=== PATIENT | male | born 1955 | race Caucasian/White ===

== ENCOUNTER 2024-03-22 10:44 | Inpatient (IN) | payer MEDICARE ==
[2024-03-22] VITALS (20 sets, daily range): BP systolic 111–134; BP diastolic 59–77
[~2024-03-22] VITALS: Ht 185.4 cm; Wt 94.3 kg
[2024-03-22] MEDS ORDERED: PLAVIX75 MG PO (11:18)
[2024-03-22] MEDS ORDERED: JARDIANCE25 MG (11:19)
[2024-03-22] MEDS ORDERED: ALLOPURINOL300 MG PO (11:20)
[2024-03-22] MEDS ORDERED: LANTUS100 UNIT SC (11:20)
[2024-03-22] MEDS ORDERED: ELIQUIS5 MG PO (11:20)
[2024-03-22] MEDS ORDERED: CRESTOR40 MG PO (11:21)
[2024-03-22] MEDS ORDERED: GABAPENTIN100 MG PO (11:21)
--- NOTE | 2024-03-22 11:24 | NUR ---
CALLED DR VALENCIA'S OFFICE AND LEFT MESSAGE
[2024-03-22] MEDS ORDERED: PIPERACILLIN Sodium-Tazobactam 4.5 GM in SODIUM CHLORIDE 0.9% 100 ML IV ONE (11:30)
[2024-03-22] MEDS ORDERED: cefTRIAXone SODIUM 2 GM in SODIUM CHLORIDE 0.9% 100 ML IV ONE (11:30)
[2024-03-22 11:48] LABS: BASO% 0.5 % (0-3); EOS% 2.3 % (0-8); HEMATOCRIT 44.3 % (39.0-50.0); HEMOGLOBIN 14.2 g/dl (14.0-18.0); IMMATURE GRANULOCYTES 0.1 % (0.0-5.0); LYMPH% 17.7 % (15-41); MEAN CELL VOLUME 91.5 fL CALC (80.0-100.0); MEAN CORPUSCULAR HGB 29.3 pG CALC (26.0-32.0); MEAN CORPUSCULAR HGB CONC 32.1 g/dL CAL (32.0-36.0); MONO% 8.3 % (2-13); NEUT# 7.05 thou/uL (1.82-7.42); NEUT% 71.1 % (42-76); RED BLOOD COUNT 4.84 mill/uL (4.70-6.10); RED CELL DISTRI WIDTH 13.7 % (11.5-15.5)
[2024-03-22 12:01] LABS: BILIRUBIN, TOTAL 0.7 mg/dL (0.2-1.3); POTASSIUM 4.7 mmol/l (3.5-5.1); TOTAL PROTEIN 7.3 g/dL (6.3-8.2)
[2024-03-22] MEDS ORDERED: ACETAMINOPHEN 325 MG/TAB PO PRN (12:50)
[2024-03-22] MEDS ORDERED: SODIUM CHLORIDE 0.9% 1,000 ML IV PRN (12:50)
[2024-03-22] MEDS ORDERED: MAGNESIUM HYDROXIDE 30 ML UDC PO PRN (12:50)
[2024-03-22] MEDS ORDERED: CEFEPIME HYDROCHLORIDE 2 GM in SODIUM CHLORIDE 0.9% 100 ML IV SCH (14:30)
[2024-03-22] MEDS ORDERED: VANCOMYCIN HCL 1,250 MG in SODIUM CHLORIDE 0.9% 225 ML IV SCH (15:00)
[2024-03-22] MEDS ORDERED: CLOPIDOGREL BISULFATE 75 MG/TAB TAB PO SCH (16:00)
[2024-03-22] MEDS ORDERED: ALLOPURINOL 100 MG/TAB PO SCH (16:00)
--- NOTE | 2024-03-22 16:31 | NUR ---
PT GLUCOSE IS 135 @1630.
--- NOTE | 2024-03-22 16:55 | NUR ---
S: LAZARO PADRON is a 68 M who presents with osteomyelitis. All medications in patient's chart were reviewed. O: VS: BP 121/67 mmhg, P 87 bpm, RR 18 bpm,T 972.F W 98kg, HT 73in, Scr= 1.0 mg/dl,CrCl= 88.3 ml/min A: Blood culture is pending. P: Patient is on cefepime 2gm iv q12h. Vancomycin ordered for pharmacy to dose. Start Vancomycin 1250mg IV Q12H. Vancomycin trough is drawn before the 4th dose on 03/24/24 @0230. Vancomycin goal trough is between 15-20 mcg/ml. Pharmacy will follow and or advise on antibiotics use as needed.
[2024-03-22] MEDS ORDERED: INSULIN LISPRO 100 UNITS/ML ML SC SCH (17:00)
--- NOTE | 2024-03-22 20:10 | NUR ---
PT SITTING UP IN BED. ALERT AND ORIENTED X4. RESPS ARE EVEN AND UNLABORED. NO DSITRESS NOTED. DENIES ANY PAIN. LUNGS ARE CLEAR TO AUCULTATION. ABDOMEN IS SOFT. SKIN IS WARMTH, DRY AND INTACT. SWELLING AND REDNESS NOTED TO RIGHT FIRST AND SECONG TOES AND SWELLING TO FIRST LEFT TOE. DENIES ANY PAIN. WEAK PULSES TO PEDAL PULSES. 20 LEFT A/C FLUSHED WITH 5 CC-NO SIGNS OF ANY ABNORMALITIES. IV SITE IS CLEAN, HEALTHY AND INTACT. CALL LIGHT IS IN REACH AND SAFETY PRECAUTIONS IN PLACE.
[2024-03-22] MEDS ORDERED: GABAPENTIN 100 MG/CAP PO SCH (21:00)
[2024-03-22] MEDS ORDERED: ENOXAPARIN SODIUM 40 MG/0.4 ML SYR SC SCH (21:00)
[2024-03-22] MEDS ORDERED: INSULIN GLARGINE 100 UNITS/ML SC SCH ×2 (21:00)
--- NOTE | 2024-03-22 21:39 | NUR ---
03/22/2024 @1999 pt glucose was 102.
--- NOTE | 2024-03-23 | NUR ---
PT RESTING IN BED WITH EYES CLOSED. RESPS ARE EVEN AND UNLABORED. NO DSITRESS NOTED. IVF NS INSUING VIA LEFT AC AT THIS TIME AT 100 CC. CALL LIGTH IN REACH AND SAFETY PRECAUTIOSN IN PLACE.
[2024-03-23 04:00] VITALS: BP 113/68
--- NOTE | 2024-03-23 04:00 | NUR ---
PATIENT IS RESTING IS BED WITH EYES CLOSED. VANCO STILL INFUSING AT THIS TIME VIA LEFT AC AT THIS TIME. RESPS ARE EVEN AND UNLABORED. CALL LIGHT IN REACH AND SAFETY PRECAUTIONS IN PLACE.
[2024-03-23 04:20] VITALS: BP 113/68
[2024-03-23 07:45] VITALS: BP 106/57
--- NOTE | 2024-03-23 07:46 | NUR ---
REPORT RECIEVED. PT A/OX3. ASSESSMENT COMPLETED. RR UNLABORED ON ROOM AIR. WOUND TO RIGHT FOOT NOTED, DRESSING TO BE APPLIED. TELE MONITORING. PT DENIES OF ANY ADDITIONAL NEEDS. SAFETY PRECAUTIONS IN PLACE WITH CALL LIGHT IN REACH.
--- NOTE | 2024-03-23 07:47 | NUR ---
patient glucose level is 97.
--- NOTE | 2024-03-23 11:10 | NUR ---
pt blood sugar 113 @1040
--- NOTE | 2024-03-23 12:30 | NUR ---
PT RESTING SEMI FOWLERS POSITION. RR UNLABORED. IVF. DRESSING TO RIGHT FOOT CDI. PT DENIES OF ANY NEEDS. SAFETY PRECAUTIONS
[2024-03-23 15:24] VITALS: BP 119/46
--- NOTE | 2024-03-23 15:39 | NUR ---
PT GLUCOSE IS 136 @1520.
--- NOTE | 2024-03-23 16:18 | NUR ---
PT RESTING IN LOW FOWLERS. RR UNLABORED. CARDIAC MONITORING. IVF. PT DENIES OF ANY NEEDS. SAFETY PRECAUTIONS. CALL LIGHT.
[2024-03-23 19:16] VITALS: BP 121/58
--- NOTE | 2024-03-23 19:25 | NUR ---
SHIFT CHANGE REPORT RECEIVED. PT RESTING IN BED WATCHING TV AT THIS TIME. ALERT AND ORIENTED X4. DENIES ANY PAIN. RESPS ARE EVEN AND UNLABORED. NO DISTRESS NOTED. LUNGS ARE CLEAR TO AUCULTATION. ABDOMEN IS SOFT AND NONDISTENDED WITH ACTIVE BOWEL SOUNDS. 20 G LAC INTACT INFUSING INF NS AT 100 CC. DRESSING TO RIGHT FOOT INTACT WITHOUT ANY DRAINAGE. STRONG PEDAL PULSES. NO EDEMA NOTED. ENCOURAGED TO CALL FOR ASSISTANCE. CALL LIGHT IS IN REACH AND SAFETY PRECAUTIONS IN PLACE.
--- NOTE | 2024-03-23 20:10 | NUR ---
blood surgar 108
--- NOTE | 2024-03-24 | NUR ---
PT RESTING IN RIGHT-SIDED POSITION WITH EYES CLOSED. RESPS ARE EVEN AND UNLABORED. IVF NS INFUSING VIA LEFT AC AT 100 [facility]. DRESSING REMAINS INTACT. CALL LIGHT IN REACH AND SAFETY PRECAUTIONS IN PLACE.
[2024-03-24 02:29] LABS: BASO% 0.5 % (0-3); HEMATOCRIT 42.9 % (39.0-50.0); HEMOGLOBIN 13.6 g/dl (14.0-18.0); IMMATURE GRANULOCYTES 0.8 % (0.0-5.0); LYMPH% 19.4 % (15-41); MEAN CELL VOLUME 91.3 fL CALC (80.0-100.0); MEAN CORPUSCULAR HGB 28.9 pG CALC (26.0-32.0); MEAN CORPUSCULAR HGB CONC 31.7 g/dL CAL (32.0-36.0); MONO% 9.5 % (2-13); NEUT# 6.11 thou/uL (1.82-7.42); NEUT% 66.8 % (42-76); RED BLOOD COUNT 4.7 mill/uL (4.70-6.10); RED CELL DISTRI WIDTH 13.5 % (11.5-15.5)
[2024-03-24 02:34] LABS: ALBUMIN 3.7 g/dL (3.2-5.0); BILIRUBIN, TOTAL 0.6 mg/dL (0.2-1.3); MAGNESIUM 2.1 mg/dL (1.6-2.3); POTASSIUM 4.2 mmol/l (3.5-5.1); TOTAL PROTEIN 6.9 g/dL (6.3-8.2)
--- NOTE | 2024-03-24 03:15 | NUR ---
VANCO TROUGH RESULTS BACK AT 11. VANCO HUNG AND INFUSING ORDERED VIA LAC SITE. PATIENT RESTING IN BED AT THIS TIME WITH NO COMPLAINTS. CALL LIGHT IN REACH. WILL CONT TO MONITOR.
--- NOTE | 2024-03-24 04:00 | NUR ---
PT RESTING IN BED WITH EYES CLOSED. BREATHING IS EVEN AND UNLABORED. VANCO INFUSING THROUGH LAC AT THIS TIME. CALL LIGHT IN REACH AND SAFETY PRECAUTIONS IN PLACE.
[2024-03-24 04:14] VITALS: BP 109/67
[2024-03-24 05:00] VITALS: BP 109/67
[2024-03-24 06:38] VITALS: BP 116/52
--- NOTE | 2024-03-24 07:05 | NUR ---
PT LAYING IN BED RESTING WITH EYES CLOSED, PT AROUSES EASILY TO VERBAL STIMULI, PT IS A&O X3, PUPILS PERRL,RESP. EVEN AND UNLABORED, LUNG SOUNDS ARE CLEAR, ABD SOFT AND DISTENDED WITH ACTIVE BOWEL, 20G LAC IV WITH FLUIDS INFUSING AT PRESCRIBED RATE, SAFTEY MEASURES REINFORCED, CALL SANDOVAL WITHIN REACH
--- NOTE | 2024-03-24 07:11 | NUR ---
pt glucose was 89 @0630
--- NOTE | 2024-03-24 11:02 | NUR ---
pt sugar was 132 @1045
--- NOTE | 2024-03-24 12:00 | NUR ---
PT SITTING UP IN THE BED EATING LUNCH, NO S/S OF DISTRESS, PT REMINDED TO CALL FOR ASSISTANCE, CALL SANDOVAL WITHIN REACH
--- NOTE | 2024-03-24 13:09 | NUR ---
S: LAZARO PADRON is a 68 M who presents with osteomyelitis. He has a history of diabetes, hypertension and heart disease. All medications in patient's chart were reviewed. O: VS: BP 116/52, P 66, RR 19. W 94.8, HT 73 inches, Scr= 1, CrCl= 87 ml/min Vancomycin trough 03/24@0230 = 11 A: Vancomycin trough level below goal of 15-20. Increase the dose/frequency of vancomycin is warranted. Blood culture shows no growth after 48 hours of incubation. P: Patient is on vancomycin 1.25g IV Q12hr. Vancomycin ordered for pharmacy to dose. Increase Vancomycin to 1g IV Q8H. Vancomycin trough is drawn before the 4th dose on 03/25/2024 at 1530. Vancomycin goal trough is between 15-20 mcg/ml. Pharmacy will follow and or advise on antibiotics use as needed.
[2024-03-24] MEDS ORDERED: VANCOMYCIN HCL 1 GM in SODIUM CHLORIDE 0.9% 250 ML IV SCH ×2 (14:00→16:00)
[2024-03-24 15:27] VITALS: BP 105/56
--- NOTE | 2024-03-24 16:00 | NUR ---
PT LAYING IN BED TALKING TO SPOUSE WHO IS AT BEDSIDE, PT DENIES ANY NEEDS AT THIS TIME, CALL SANDOVAL WITHIN REACH
--- NOTE | 2024-03-24 16:31 | NUR ---
pt sugar was 106 @1545
[2024-03-24 18:30] VITALS: BP 112/42
[2024-03-24 18:34] VITALS: BP 112/42
--- NOTE | 2024-03-24 19:20 | NUR ---
PATIENT OBSERVED SITTING UP IN BED. ALERT AND ORIENTED. ABLE TO MAKE NEEDS KNOWN. ASSESSMENT COMPLETE. NO DISTRESS NOTED. NO COMPLAINTS OF PAIN TO RIGHT FOOT AT THIS TIME. DRESSING INTACT. PATIENT DENIES NEEDING ANYTHING AT THIS TIME. BED IN LOW POSITION. CALL SANDOVAL IN REACH.
--- NOTE | 2024-03-24 20:25 | NUR ---
NOTIFIED SURGEON TO CLARIFY IF DRESSING NEEDED TO BE CHANGED TONIGHT. PER SURGEON PATIENT DRESSING CAN BE CHANGED TONIGHT IF PATIENT WANTS IT DONE.
--- NOTE | 2024-03-24 20:40 | NUR ---
03/24/2024 @1999 pt glucose was 110.
--- NOTE | 2024-03-24 22:15 | NUR ---
DRESSING CHANGED TO RIGHT FOOT. GREAT TOE AND SECOND TOE APPEAR WITH BROWN/BLACK AREAS IN COLOR WITH SOME PINK AREAS. ON INNER SECOND TOE TOWARDS GREAT TOE, ON THE SIDE, AREA OBSERVED OPEN AND [place]. PATIENT TOLERATED DRESSING CHANGE.
--- NOTE | 2024-03-24 22:35 | NUR ---
REMOVED LEFT AC #22 PER PATIENT REQUEST. CATHETER WAS INTACT.
[2024-03-25] VITALS (8 sets, daily range): BP systolic 108–139; BP diastolic 42–68
--- NOTE | 2024-03-25 00:39 | NUR ---
PATIENT DENIES NEEDING ANYTHING AT THIS TIME. BED IN LOW POSITION. CALL SANDOVAL IN REACH. DRESSING REMAINS INTACT TO RIGHT FOOT.
--- NOTE | 2024-03-25 04:00 | NUR ---
MORNING LABS DRAWN PER ORDERS. DENIES NEEDING ANYTHING AT THIS TIME. BED IN LOW POSITION. CALL SANDOVAL AND BELONGINGS REMAIN IN REACH.
[2024-03-25 05:11] LABS: BASO% 0.8 % (0-3); EOS% 2.9 % (0-8); HEMATOCRIT 39.8 % (39.0-50.0); HEMOGLOBIN 13.3 g/dl (14.0-18.0); IMMATURE GRANULOCYTES 0.1 % (0.0-5.0); LYMPH% 17.5 % (15-41); MEAN CELL VOLUME 90.7 fL CALC (80.0-100.0); MEAN CORPUSCULAR HGB 30.3 pG CALC (26.0-32.0); MEAN CORPUSCULAR HGB CONC 33.4 g/dL CAL (32.0-36.0); MONO% 8.6 % (2-13); NEUT# 6.45 thou/uL (1.82-7.42); NEUT% 70.1 % (42-76); RED BLOOD COUNT 4.39 mill/uL (4.70-6.10); RED CELL DISTRI WIDTH 13.4 % (11.5-15.5)
[2024-03-25 05:43] LABS: ALBUMIN 3.4 g/dL (3.2-5.0); BILIRUBIN, TOTAL 0.6 mg/dL (0.2-1.3); CREATININE 0.9 mg/dL (0.7-1.3); POTASSIUM 4.1 mmol/l (3.5-5.1); TOTAL PROTEIN 6.4 g/dL (6.3-8.2)
--- NOTE | 2024-03-25 07:02 | NUR ---
pt sugar was 111 @0772
--- NOTE | 2024-03-25 07:10 | NUR ---
PT LYING IN BED FLAT WITH EYES OPEN. AXO X3. CLEAR LUNG SOUNDS WITH NO LABORED BREATHING ON ROOM AIR. NORMAL S1, S2 HEART RYTHM. STRONG PEDAL PULSES. R FOOT DIGIT DRESSING IN PLACE. NO TELLE. PT DECLINES ANY NEEDS AT THIS TIME. PT REMINDED OF SAFETY PRECAUTIONS. BED IN LOWEST POSITION AND CALL L8IGHT WITHIN REACH.
--- NOTE | 2024-03-25 08:00 | NUR ---
PT WAS DELIVERED BREAKFAST AT 0730 TO ENSURE HE HAD TIME TO EAT BEFOREW GOING NPO. PATIENT WAS REMINDED AT 0800 NOTHING BY MOUTH FOOD OR WATER. REMOVED PT'S FOOD AND WATER IN PREPARATION TO SURGERY THIS AFTERNOON ON HIS RIGHT FOOT DIGITS. PT DECLINES ANY NEEDS AT THIS TIME. CALL LIGHT WITHIN REACH.
--- NOTE | 2024-03-25 10:43 | NUR ---
pt sugar was 144 @1035
--- NOTE | 2024-03-25 12:02 | NUR ---
PT SITTING UP IN BED WATCHING TV. PT STILL NPO DUE TO SURGERY SCHEDULED THIS AFTERNOON ON RIGHT FOOT DIGIT, STAFF WITHHELD LUNCH. PICC LINE IN PLACE AND HEALTHY. PT BREATHING IS CLEAR AND UNLABORED ON ROOM AIR. PT DECLINES ANY NEEDS AT THIS TIME. BED IN LOWEST POSITION AND CALL SANDOVAL WITHIN REACH.
[2024-03-25] MEDS ORDERED: SODIUM CHLORIDE 1,000 ML BTL IR ONE (13:33)
[2024-03-25] MEDS ORDERED: STERILE WATER FOR IRRIGATION 1,000 ML BTL IR ONE (13:33)
[2024-03-25] MEDS ORDERED: BUPIVACAINE HCL PF 0.5% 30 ML VIAL ONE (13:33)
--- NOTE | 2024-03-25 14:48 | NUR ---
PT TRANSPORTED TO OR BY TWO OR NURSES VIA STRETCHER. PT ENCOURAGED TO VOID PRIOR TO TRANSPORT AND CHANGED INTO GOWN AND CAP.
[2024-03-25] MEDS ORDERED: FAMOTIDINE 10MG/ML 2ML SDV IV ONE (15:03)
[2024-03-25] MEDS ORDERED: SODIUM CHLORIDE 0.9% 1,000 ML IV ONE (15:03)
--- NOTE | 2024-03-25 15:42 | NUR ---
S: LAZARO PADRON is a 68 M who presents with osteomyelitis. O: VS: BP 120/72, P 85, RR 16, T 97.3 W 94.8 kg, HT 73 in, Scr=0.9, CrCl= 88 ml/min Vancomycin trough 03/25/24@1506 = 17 A: Blood culture is pending. Vancomycin trough level within goal range of 15-20. No change in dose is warranted. P: Patient is on vancomycin 1 g IV q8h. Vancomycin ordered for pharmacy to dose. Continue Vancomycin 1g IV Q8H. Vancomycin trough is drawn before the dose on 03/26/24@1530. Vancomycin goal trough is between 15-20 mcg/ml. Pharmacy will follow and or advise on antibiotics use as needed.
[2024-03-25] MEDS ORDERED: PROPOFOL 200 MG/20 ML VIAL IV ONE (16:28)
[2024-03-25] MEDS ORDERED: PHENYLEPHRINE HCL 10 MG/ML VIAL IV ONE (16:28)
[2024-03-25] MEDS ORDERED: LIDOCAINE HCL 2% 2ML SDV IV ONE (16:28)
--- NOTE | 2024-03-25 17:30 | NUR ---
PT RETURNED TO THE ROOM VIA STETCHER WITH OR STAFF. PT SELF TRANSFERED FROM STRETCHER TO BED IN ROOM WITH NO ASSIST. ELEVATED RIGHT FOOT WITH TWO PILLOWS PER DOCTORS REQUEST. RIGHT GREAT TOE REMOVED IN OR AND DRESSING IS DRY AND IN PLACE. PT TAKEN OFF NPO AND EATING DINNER WITH THREE VISITORS AT THE BEDSIDE. BED IN THE LOWEST POSITION AND CALL SANDOVAL WITHIN REACH.
--- NOTE | 2024-03-25 19:00 | NUR ---
PATIENT OBSERVED RESTING IN BED. ALERT AND ABLE TO MAKE NEEDS KNOWN. ASSESSMENT COMPLETE. NO DISTRESS NOTED. NO COMPLAINTS OF PAIN. SURGICAL DRESSING TO RIGHT FOOT CDI. PATIENT ABLE TO WHIGGLE TOES. SCD ON TO LEFT LEG. RIGHT LEG ELEVATED. POORNIMA PICC PATENT. PATIENT DENIES NEEDING ANYTHING AT THIS TIME. BED IN LOW POSITION. CALL SANDOVAL IN REACH.
--- NOTE | 2024-03-26 00:19 | NUR ---
PATIENT SITS ON SIDE OF BED TO USE URINAL. NO COMPLAINTS WITH VOIDING. NO COMPLAINTS OF PAIN. DENIES NEEDING ANYTHING AT THIS TIME. CALL SANDOVAL IN REACH.
[2024-03-26 04:28] VITALS: BP 110/63
--- NOTE | 2024-03-26 04:29 | NUR ---
PATIENT REMAINS RESTING IN BED. NO DISTRESS NOTED. NO COMPLAINTS OF PAIN. DRESSING REMAINS INTACT TO RIGHT FOOT. CIRCULATION REMAINS WNL. PATIENT REMAINS ABLE TO WIGGLE TOES. DENIES NEEDING ANYTHING AT THIS TIME. CALL SANDOVAL IN REACH.
[2024-03-26 05:34] LABS: BASO% 0.5 % (0-3); EOS% 2.9 % (0-8); HEMOGLOBIN 13.3 g/dl (14.0-18.0); IMMATURE GRANULOCYTES 0.2 % (0.0-5.0); LYMPH% 15.5 % (15-41); MEAN CELL VOLUME 91.1 fL CALC (80.0-100.0); MEAN CORPUSCULAR HGB 30.3 pG CALC (26.0-32.0); MEAN CORPUSCULAR HGB CONC 33.3 g/dL CAL (32.0-36.0); MONO% 7.7 % (2-13); NEUT# 7.12 thou/uL (1.82-7.42); NEUT% 73.2 % (42-76); RED BLOOD COUNT 4.39 mill/uL (4.70-6.10); RED CELL DISTRI WIDTH 13.4 % (11.5-15.5)
[2024-03-26 05:52] LABS: ALBUMIN 3.3 g/dL (3.2-5.0); BILIRUBIN, TOTAL 0.5 mg/dL (0.2-1.3); CREATININE 0.9 mg/dL (0.7-1.3); MAGNESIUM 2.1 mg/dL (1.6-2.3); POTASSIUM 4.2 mmol/l (3.5-5.1); TOTAL PROTEIN 6.2 g/dL (6.3-8.2)
--- NOTE | 2024-03-26 07:07 | NUR ---
PATIENT A&OX3, LYING SUPINE IN BED. BREATHING UNLABORED ON ROOM AIR. POORNIMA PICC SL;SITE CLEAN AND INTACT. ASSESSMENT COMPLETED. PT DENIES ANY PAIN OR N/D/V/ AT THIS TIME. PERSONAL ITEMS WELL CALL LIGHT WITHIN REACH;PT VERBALIZED UNDERSTANDING OF USE. BED IN LOWEST POSITON. MEDICATION REVIEWED. POC ONGOING. NO NEEDS AT THIS TIME.
[2024-03-26 07:48] VITALS: BP 103/61
[2024-03-26 10:26] VITALS: BP 99/69
--- NOTE | 2024-03-26 12:29 | NUR ---
PATIENT SITTING UP IN BED AWAKE. BREATHING UNLABORED ON ROOM AIR. POORNIMA PICC SL;SITE CLEAN AND INTACT. PT DENIES ANY PAIN OR N/D/V AT THIS TIME. DENIES ANY NEEDS. RIGHT FOOT SURGICAL DRESSING C/D/I. SCD ON LEFT LEG INTACT. BED IN LOWEST POSITON. PT STATES HE IS ABOUT TO TAKE A NAP. NO OTHER NEEDS AT THIS TIME. BED IN LOWEST POSITON. POC ONGOING.
[2024-03-26] MEDS ORDERED: APIXABAN BASE 5 MG TAB PO SCH (12:30)
--- NOTE | 2024-03-26 16:16 | NUR ---
S: LAZARO PADRON is a 68 M who presents with OSTEOMYELITIS. All medications in patient's chart were reviewed. O: VS: BP 99/69, P 62, RR 20,T 97.3 F W 94kg, HT 73 IN, Scr= 0.9,CrCl= 96ml/min TROUGH=17 A: wound and blood culture are pending P: Patient is on vancomycin 1gm iv q8h and cefepime 2gm iv q12h Vancomycin ordered for pharmacy to dose. continue Vancomycin 1gm IV Q8H. Vancomycin trough is drawn before the 4th dose on 03/27/24 @1530. Vancomycin goal trough is between 15-20 mcg/ml. Pharmacy will follow and or advise on antibiotics use as needed.
--- NOTE | 2024-03-26 16:30 | NUR ---
PATIENT LYING IN BED RESTING. BREATHING UNLABORED ON ROOM AIR. POORNIMA PICC INFUSING FLUIDS PER EMAR;SITE CLEAN AND INTACT. PT STATES HE IS STARTING TO FEEL SOME TINGLING AND THROBBING IN HIS RIGHT FOOT. RIGHT FOOT DRESSING C/D/I. DENIES ANY N/D/V AT THIS TIME. PERSONAL ITEMS WELL CALL LIGHT WITHIN REACH. BED IN LOWEST POSITION. NO OTHER NEEDS AT THIS TIME. POC ONGOING.
[2024-03-26 18:36] VITALS: BP 118/55
[2024-03-26] MEDS ORDERED: HYDROcodone 5 MG/Acetaminophen 325 MG/COMBO PO PRN ×2 (19:40→19:55)
--- NOTE | 2024-03-26 20:00 | NUR ---
RECEIVED RERPORT FROM NURSE CARDOZA, PATIENT ALERT ORIENTED POST OP DAY 1 DRESSING ON RT FOOT CDI, PATIENT FOOT OFFLOADED 2 PILLOW ORDERED, PICC LINE PATENT FLUSHES WELL, C/O PAIN PS 10/10 MEDICATED WILL REEVAULATE.
[2024-03-26] MEDS ORDERED: oxyCODONE 10MG/APAP 325 MG 1 COMBO TAB PO PRN (21:20)
[2024-03-26 22:41] VITALS: BP 122/59
--- NOTE | 2024-03-26 22:52 | NUR ---
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
--- NOTE | 2024-03-26 23:00 | NUR ---
CALLED DR JANE, NOTIFIED OF PATIENT STILL HAVING PAIN RT FOOR PS 10/10 AFTER PERCOCET WITH NEW ORDERS MADE, SENT TO PHARMACY.
[2024-03-26] MEDS ORDERED: HYDROmorphone HCL 2 MG/AMP IV PRN (23:15)
--- NOTE | 2024-03-27 03:49 | NUR ---
PATIENT RESTING IN BED, CALLED REUQESTING PAIN MEDS PS 10/03 RT FOOT MEDICATED, RT FOOT STILL ELEVATED WITH 2 PILLOW, CALL LIGHT WITHIN REACHED.
[2024-03-27 04:18] VITALS: BP 106/47
[2024-03-27 05:43] VITALS: BP 100/51
[2024-03-27 05:44] VITALS: BP 100/51
[2024-03-27 05:56] LABS: BASO% 0.4 % (0-3); HEMATOCRIT 38.9 % (39.0-50.0); HEMOGLOBIN 12.8 g/dl (14.0-18.0); IMMATURE GRANULOCYTES 0.2 % (0.0-5.0); LYMPH% 14.6 % (15-41); MEAN CORPUSCULAR HGB 29.6 pG CALC (26.0-32.0); MEAN CORPUSCULAR HGB CONC 32.9 g/dL CAL (32.0-36.0); MONO% 10.8 % (2-13); NEUT# 7.01 thou/uL (1.82-7.42); RED BLOOD COUNT 4.32 mill/uL (4.70-6.10); RED CELL DISTRI WIDTH 13.4 % (11.5-15.5)
[2024-03-27 06:00] LABS: ALBUMIN 3.4 g/dL (3.2-5.0); CREATININE 0.8 mg/dL (0.7-1.3); MAGNESIUM 2.1 mg/dL (1.6-2.3); POTASSIUM 4.2 mmol/l (3.5-5.1); TOTAL PROTEIN 6.3 g/dL (6.3-8.2)
[2024-03-27 06:12] LABS: BILIRUBIN, TOTAL 0.8 mg/dL (0.2-1.3)
[2024-03-27 07:30] VITALS: BP 98/53
--- NOTE | 2024-03-27 07:33 | NUR ---
PATIENT LYING AWAKE IN BED. BREATHING UNLABORED ON ROOM AIR. POORNIMA PICC SL;SITE CLEAN AND INTACT. RIGHT FOOT DRESSING C/D/I; ENCOURAGED PT TO ELEVATE ON PILLOW. PT STATES TO TO HAVE LITTLE PAIN RATED AT A 4. PT STATES THAT DILAUDID MANAGES HIS PAIN BETTER THAN THE PERCOCET;INFORMED PT IT WILL BE MENTIONED TO THE DOCTOR. PT DENIES ANY N/D/V AT THIS TIME. BED IN LOWEST POSITON. PERSONAL ITMES WELL CALL LIGHT WITHIN REACH. NO OTHER NEEDS AT THIS TIME. POC ONGOING.
--- NOTE | 2024-03-27 12:34 | NUR ---
PATIENT LYING IN BED AWAKE. BREATHING UNLABORED ON ROOM AIR. POORNIMA PICC SL;SITE CLEAN AND INTACT. PT CURRENTLY SPEAKING WITH AT THE MOMENT DUE TO PT REQUEST. AT BEDSIDE. URINAL WELL PERSONAL ITEMS WITHIN REACH. BED IN LOWEST POSION. CALL LIGHT NEAR. PT REQUESTED FOR MORE PAIN MEDICATION;MEDICATION ADMINISTERED PER EMAR. NO OTHER NEEDS AT THIS TIME. RIGHT FOOT DRESSING C/D/I. POC ONGOING.
[2024-03-27] MEDS ORDERED: CEFEPIME HYDROCHLORIDE 2 GM in SODIUM CHLORIDE 0.9% 100 ML IV SCH (14:00)
[2024-03-27 16:00] VITALS: BP 106/58
--- NOTE | 2024-03-27 16:16 | NUR ---
PATIENT LYING IN BED WITH EYES CLOSED RESTING. BREATHING UNLABORED ON ROOM AIR. POORNIMA PICC INFUSING FLUIDS PER EMAR;SITE CLEAN AND INTACT. PT STATES TO NOW START TO FEEL SOME TINGLING;MEDICATION REVIEWED AND ADMINISTERED PER EMAR. DENIES ANY N/D/V AT THIS TIME. RIGHT FOOT DRESSING C/D/I;ENCOURAGED PT TO ELEVATE ON PILLOWS. BED IN LOWEST POSITION. PERSONAL ITEMS WELL CALL LIGHT WITHIN REACH. POC ONGOING. NO OTHER NEEDS AT THIS TIME.
[2024-03-27 18:45] VITALS: BP 102/66
--- NOTE | 2024-03-27 19:50 | NUR ---
PATIENT SITTING UP IN BED. AT BEDSIDE. ASSESSMENT COMPLETED. PATIENT ALERT AND ORIENTED X 4. C/O RT FOOT PAIN OF A 6, MEDICATED ACCORDING TO EMAR. LUNGS CLEAR TO ASCULTATION. BREATHING EVEN AND UNLABORED ON ROOM AIR. DRESSING TO R FOOT CLEAN, DRY AND INTACT. NO ADDITIONAL CONCERNS AT THIS TIME. SAFETY MEASURES IN PLACE INCLUDING BED IN LOW POSITION AND CALL LIGHT RESTING IN R HAND. NO APPARENT DISTRESS NOTED. WILL CONTINUE WITH PLAN OF CARE.
--- NOTE | 2024-03-27 20:42 | NUR ---
PATIENT SITTING UP ON THE SIDE OF THE BED. ASSESSMENT COMPLETED. CIWA COMPLETED (SEE INTERVENTIONS). PATIENT ALERT AND ORIENTED X 4. C/O "BACK OF LUNG" PAIN OF A 9, MEDICATED ACCORDING TO EMAR. LUNG WHEEZES NOTED TO ASCULTATION. BREATHING EVEN AND UNLABORED, SOB NOTED WITH EXERTION ON ROOM AIR. STRONG PERIPHERAL PULSES. 22 RFA FLUSHSES/DRAWS WELL. SAFETY MEASURES IN PLACE INCLUDING BED IN LOW POSITION AND CALL LIGHT RESTING NEXT TO R LEG. NO APPARENT DISTRESS NOTED. WILL CONTINUE WITH PLAN OF CARE.
--- NOTE | 2024-03-27 23:48 | NUR ---
PATIENT LYING IN BED RESTING. C/O PAIN IN R FOOT OF AN 8, MEDICATED ACCORDING TO EMAR. DENIES ADDITIONAL CONCERNS AT THIS TIME. WILL CONTINUE WITH PLAN OF CARE.
--- NOTE | 2024-03-28 04:05 | NUR ---
PATIENT LYING IN BED. C/O R FOOT PAIN, REQUESTING PERCOCET. ADVISED PATIENT MEDICATION IS NOT DUE AT THIS TIME. PATIENT STATED "THAT'S OKAY, JUST TRYING TO STAY AHEAD OF THE PAIN". OFFERED ADDITIONAL PAIN RELIEF MEASURES INCLUDING REPOSITIONING, PATIENT DECLINED. NO ADDITIONAL CONCERNS AT THIS TIME. WILL CONTINUE WITH PLAN OF CARE.
[2024-03-28 04:13] VITALS: BP 116/59
[2024-03-28 06:05] LABS: BASO% 0.6 % (0-3); EOS% 3.9 % (0-8); HEMATOCRIT 41.7 % (39.0-50.0); HEMOGLOBIN 13.4 g/dl (14.0-18.0); IMMATURE GRANULOCYTES 0.1 % (0.0-5.0); LYMPH% 15.3 % (15-41); MEAN CELL VOLUME 91.6 fL CALC (80.0-100.0); MEAN CORPUSCULAR HGB 29.5 pG CALC (26.0-32.0); MEAN CORPUSCULAR HGB CONC 32.1 g/dL CAL (32.0-36.0); MONO% 9.2 % (2-13); NEUT# 5.99 thou/uL (1.82-7.42); NEUT% 70.9 % (42-76); RED BLOOD COUNT 4.55 mill/uL (4.70-6.10); RED CELL DISTRI WIDTH 13.5 % (11.5-15.5)
[2024-03-28 06:16] LABS: ALBUMIN 3.7 g/dL (3.2-5.0); BILIRUBIN, TOTAL 0.7 mg/dL (0.2-1.3); CREATININE 1.1 mg/dL (0.7-1.3); MAGNESIUM 2.1 mg/dL (1.6-2.3); TOTAL PROTEIN 6.7 g/dL (6.3-8.2)
[2024-03-28 07:03] VITALS: BP 113/65
--- NOTE | 2024-03-28 07:06 | NUR ---
PATIENT IN BED WITH EYES CLOSED RESTING. BREATHING UNLABORED ON ROOM AIR. POORNIMA PICC SL;SITE CLEAN AND INTACT. RIGHT FOOT DRESSING C/D/I. NO SIGNS OF DISTRESS OR PAIN NOTED. URINAL NEAR. PERSONAL ITEMS WELL CALL LIGHT WITHIN REACH. BED IN LOWEST POSITION. NO NEEDS AT THIS TIME. POC ONGOING.
--- NOTE | 2024-03-28 10:50 | NUR ---
S: LAZARO PADRON is a 68 M who presents with osteomyelitis. O: VS: BP 113/65, P 82, RR 20,T 98.2 W 94.34 kg, HT 73 in, Scr= 1.1,CrCl= 79 ml/min A: Blood culture is pending. Wound culture shows no growth at 48 hours. P: Patient is on Cefepime 2gm IV q8h. Vancomycin ordered for pharmacy to dose. Vancomycin trough on 03/27/24 1530 resulted at 17 mcg/ml. Continue current dose of Vancomycin 1gm IV Q8H. Vancomycin trough is drawn on 03/29/24 0730. Vancomycin goal trough is between <15-20 mcg/ml>. Pharmacy will follow and or advise on antibiotics use as needed.
--- NOTE | 2024-03-28 12:23 | NUR ---
PATIENT SITTING UP IN BED EATING LUNCH. BREATHING UNLABORED ON ROOM AIR. POORNIMA PICC SL;SITE CLEAN AND INTACT. PT STATES TO HAVE SOME PAIN;INFORMED PT PAIN MEDS WILL BE ADMINISTERED PER EMAR;PT VERBALIZED UNDERSTANDING. RIGHT FOOT DRESSING C/D/I;ENCOURAGED ELEVATION. DENIES ANY N/D/V AT THIS TIME. BED IN LOWEST POSITION. URINAL AND PERSONAL ITEMS WELL CALL LIGHT WITHIN REACH. CALL LIGHT NEAR. POC ONGOING. NO NEEDS AT THIS TIME.
[2024-03-28 15:01] VITALS: BP 114/58
--- NOTE | 2024-03-28 16:40 | NUR ---
PATIENT SITTING UP IN BED WITH AT BEDSIDE. BREATHING UNLABORED ON ROOM AIR. PT STATES HE JUST FINISHED CLEANING HISSELF UP WITH THE HELP OF . STATES TO HAVE SOME PAIN RATED AT A 4;MEDICATION ADMINISTERED PER EMAR. DENIES ANY N/D/V AT THIS TIME. PERSONAL ITEMS WELL CALL LIGHT WITHIN REACH. BED IN LOWEST POSITION. URINAL NEAR. NO OTHER NEEDS AT THIS TIME. POC ONGOING.
[2024-03-28 19:21] VITALS: BP 100/53
--- NOTE | 2024-03-28 19:44 | NUR ---
PATIENT SITTING UP IN BED. FAMILY AT BEDSIDE. PATIENT ALERT AND ORIENTED X 4. C/O R FOOT PAIN OF A 4. REPOSITIONING EFFECTIVE. LUNGS CLEAR TO ASCULTATION. BREATHING EVEN AND UNLABORED ON ROOM AIR. DENIES ADDITIONAL CONCERNS AT THIS TIME. NO APPARENT DISTRESS NOTED. WILL CONTINUE WITH PLAN OF CARE. LB 03/27.
--- NOTE | 2024-03-29 | NUR ---
PATIENT APPEARS TO BE RESTING WITH EYES CLOSED. RISE AND FALL OF CHEST NOTED. NO APPARENT DISTRESS. WILL CONTINUE WITH PLAN OF CARE.
--- NOTE | 2024-03-29 03:41 | NUR ---
PATIENT LYING IN BED. C/O R FOOT PAIN OF AN 8, PATIENT EXPECTATION WAS TO RECEIVE IV DILAUDID. PATIENT EDUCATED ON PAIN MEDICATION ORDERS, DILAUDID FOR BREAKTHROUGH. PATIENT AGREEABLE TO LORTAB. WILL REASSESS PAIN LEVEL WHEN DUE. LAST DOSE LORTAB: 03/28 1651, DILAUDID 03/28 2123. NO ADDITIONAL CONCERNS AT THIS TIME. WILL CONTINUE WITH PLAN OF CARE.
[2024-03-29 04:03] VITALS: BP 113/31
[2024-03-29 07:00] VITALS: BP 96/35
--- NOTE | 2024-03-29 07:40 | NUR ---
PT IS AWAKE LAYING IN BED. CALL LIGHT IN REACH.
--- NOTE | 2024-03-29 12:00 | NUR ---
PT IS LAYING IN BED AWAKE. CALL LIGHT IN REACH. AT THE BEDSIDE.
[2024-03-29 16:00] VITALS: BP 92/40
--- NOTE | 2024-03-29 16:00 | NUR ---
PT IS LAYING IN BED, AT BEDSIDE. CALL LIGHT IN REACH.
[2024-03-29 18:30] VITALS: BP 98/52
[2024-03-29 18:49] VITALS: BP 98/52
--- NOTE | 2024-03-29 20:25 | NUR ---
PT RESTING IN BED NO DISTRESS NOTED. PT REPORTED RIGHT FOOT PAIN 7/10 IV PAIN MEDICATION GIVEN. RIGHT FOOT DRESSING CLEAN AND INTACT. POORNIMA PICC LINE FLUSHED WORKING PROPERLY SL. CALL LIGHT WITHIN REACH. PLAN OF CARE ONGOING.
--- NOTE | 2024-03-30 00:04 | NUR ---
PT SLEEPING NO DISTRESS NOTED ON EXAM. CALL LIGHT WITHIN REACH. PLAN OF CARE ONGOING.
[2024-03-30 04:00] VITALS: BP 103/55
--- NOTE | 2024-03-30 04:15 | NUR ---
PT SLEEPING NO DISTRESS NOTED ON EXAM. CALL LIGHT WITHIN REACH. PLAN OF CARE ONGOING.
[2024-03-30 06:57] VITALS: BP 116/58
[2024-03-30 07:10] VITALS: BP 116/58
--- NOTE | 2024-03-30 07:15 | NUR ---
PT LAYING IN BED RESTING WITH EYES CLOSED, AROUSES EASILY TO VERBAL STIMULI, PT IS A&O X3, PUPILS ARE PERRL, RESP. EVEN AND UNLABORED, LUNG SOUNDS ARE CLEAR, ABD DISTENDED AND SOFT WITH ACTIVE BOWEL SOUNDS, POORNIMA SINGLE LUMEN PICC IN PLACE SL, STRONG RADIAL PULSES, STRONG PEDAL PULSE ON L FOOT, WEAK PEDAL PULSE ON R FOOT, DRESSING IS CD&I ON R FOOT, SAFETY MEASURES REINFORCED, CALL SANDOVAL WITHIN REACH
[2024-03-30] MEDS ORDERED: CEFTRIAXONE2 GM IV (07:42)
[2024-03-30] MEDS ORDERED: DAPTOMYCIN500 MG IV (07:42)
[2024-03-30] MEDS ORDERED: cefTRIAXone SODIUM 2 GM in SODIUM CHLORIDE 0.9% 100 ML IV SCH (11:00)
[2024-03-30] MEDS ORDERED: HYDROCO/APAP1 TA9 PO ×2 (11:58→13:49)
--- NOTE | 2024-03-30 12:00 | NUR ---
PT SITTING UP IN THE BED EATING LUNCH, PT DENIES ANY NEEDS AT THIS TIME, CALL SANDOVAL WITHIN REACH
--- NOTE | 2024-03-30 15:00 | NUR ---
Discharge instructions given. Patient verbalizes understanding of same. Discharged in stable condition via Wheelchair to Home with spouse. All belongings sent with pt.
== END 2024-03-30 15:00 | disposition home health service (06) | DRG 617 ==
LOC: ED 10:44 → MS2 12:36
PROVIDERS: Family Medicine; Internal Medicine; Nurse Practitioner Family; ADMIT Internal Medicine; ATTEND Internal Medicine
PROC: 02HV33Z Insertion of Infusion Device into Superior Vena Cava, Percutaneous Approach (ICD-10-PCS; 2024-03-24)
PROC: B518ZZA Fluoroscopy of Superior Vena Cava, Guidance (ICD-10-PCS; 2024-03-24)
PROC: 0Y6P0Z0 Detachment at Right 1st Toe, Complete, Open Approach (ICD-10-PCS; principal; 2024-03-25)
PROC: 0QBN0ZZ Excision of Right Metatarsal, Open Approach (ICD-10-PCS; 2024-03-25)
PROC: 0HXMXZZ Transfer Right Foot Skin, External Approach (ICD-10-PCS; 2024-03-25)
DX: E11.69 Type 2 diabetes mellitus with other specified complication (principal); L97.518 Non-pressure chronic ulcer of other part of right foot with other specified severity; M86.8X7 Other osteomyelitis, ankle and foot; L03.031 Cellulitis of right toe; E11.621 Type 2 diabetes mellitus with foot ulcer; E11.42 Type 2 diabetes mellitus with diabetic polyneuropathy; E11.51 Type 2 diabetes mellitus with diabetic peripheral angiopathy without gangrene; I10 Essential (primary) hypertension; I48.91 Unspecified atrial fibrillation; I25.10 Atherosclerotic heart disease of native coronary artery without angina pectoris; Z98.62 Peripheral vascular angioplasty status; Z95.5 Presence of coronary angioplasty implant and graft; Z79.84 Long term (current) use of oral hypoglycemic drugs; Z79.01 Long term (current) use of anticoagulants; Z79.02 Long term (current) use of antithrombotics/antiplatelets; Z79.4 Long term (current) use of insulin; Z95.1 Presence of aortocoronary bypass graft
CPT/HCPCS: J0692; J0696; J0878; J1171; J1650; J1815; J2543; J3370

== ENCOUNTER 2024-05-19 15:07 | Inpatient (IN) | payer MEDICARE ==
[~2024-05-19] VITALS: Ht 185.4 cm; Wt 96.0 kg
[2024-05-19 14:38] VITALS: BP 104/54
[~2024-05-19 15:07] MED LIST: ALLOPURINOL300 MG PO; CEFTRIAXONE2 GM IV; CRESTOR40 MG PO; DAPTOMYCIN500 MG IV; ELIQUIS5 MG PO; GABAPENTIN100 MG PO; HYDROCO/APAP1 TA9 PO; JARDIANCE25 MG; LANTUS100 UNIT SC; PLAVIX75 MG PO
[2024-05-19] MEDS ORDERED: ENOXAPARIN SODIUM 100 MG/ML SYR SC SCH (15:50)
[2024-05-19] MEDS ORDERED: DEXTROSE 250 ML IV PRN (15:50)
[2024-05-19 16:08] LABS: HEMOGLOBIN 13.9 g/dl (14.0-18.0); MEAN CELL VOLUME 89.8 fL CALC (80.0-100.0); MEAN CORPUSCULAR HGB CONC 32.3 g/dL CAL (32.0-36.0); RED BLOOD COUNT 4.79 mill/uL (4.70-6.10); RED CELL DISTRI WIDTH 14.4 % (11.5-15.5)
[2024-05-19] MEDS ORDERED: Polyethylene Glycol 3350 17 GM/PKT PO PRN (16:20)
[2024-05-19] MEDS ORDERED: ALUM & MAG HYDROX-SIMETHICONE 30 ML PO PRN (16:20)
[2024-05-19] MEDS ORDERED: SODIUM CHLORIDE 0.9% 10 ML SYR IV PRN (16:20)
[2024-05-19] MEDS ORDERED: LORazepam 0.5 MG/TAB PO PRN (16:20)
[2024-05-19] MEDS ORDERED: ACETAMINOPHEN 325 MG/TAB PO PRN (16:20)
[2024-05-19 16:24] LABS: POTASSIUM 4.1 mmol/l (3.5-5.1)
[2024-05-19] MEDS ORDERED: HYDROcodone 5 MG/Acetaminophen 325 MG/COMBO PO PRN (16:35)
[2024-05-19] MEDS ORDERED: CEFEPIME HYDROCHLORIDE 2 GM in SODIUM CHLORIDE 0.9% 100 ML IV SCH (17:00)
[2024-05-19] MEDS ORDERED: INSULIN LISPRO 100 UNITS/ML ML SC SCH (17:00)
[2024-05-19 17:51] VITALS: BP 114/62
[2024-05-19 18:30] VITALS: BP 114/62
[2024-05-19] MEDS ORDERED: VANCOMYCIN HCL 1 GM in SODIUM CHLORIDE 0.9% 250 ML IV SCH (20:00)
[2024-05-19] MEDS ORDERED: GABAPENTIN 100 MG/CAP PO SCH (21:00)
[2024-05-19] MEDS ORDERED: SODIUM CHLORIDE 0.9% 1,000 ML IV PRN (23:00)
[2024-05-19 23:26] VITALS: BP 142/79
[2024-05-20] VITALS: BP 142/79
[2024-05-20 03:17] VITALS: BP 124/68
[2024-05-20 04:23] LABS: ALBUMIN 3.8 g/dL (3.2-5.0); BILIRUBIN, TOTAL 0.6 mg/dL (0.2-1.3); CREATININE 0.9 mg/dL (0.7-1.3); POTASSIUM 4.1 mmol/l (3.5-5.1); TOTAL PROTEIN 6.6 g/dL (6.3-8.2)
[2024-05-20] MEDS ORDERED: BUPIVACAINE HCL PF 0.5% 30 ML VIAL ONE (06:53)
[2024-05-20] MEDS ORDERED: KETOROLAC TROMETHAMINE 30 MG/ML SDV ONE (08:20)
[2024-05-20] MEDS ORDERED: ACETAMINOPHEN 100 ML IV ONE (08:20)
[2024-05-20] MEDS ORDERED: ALLOPURINOL 100 MG/TAB PO SCH (09:00)
[2024-05-20] MEDS ORDERED: STERILE WATER FOR IRRIGATION 500 ML BTL IR ONE (09:02)
[2024-05-20] MEDS ORDERED: LIDOCAINE HCL 2% (20 MG/ML) 5ML SDV IV ONE (13:18)
[2024-05-20] MEDS ORDERED: SODIUM CHLORIDE 0.9% 1,000 ML BAG IV ONE (13:18)
[2024-05-20] MEDS ORDERED: PHENYLEPHRINE HCL 10 MG/ML VIAL IV ONE (13:18)
[2024-05-20] MEDS ORDERED: PROPOFOL 200 MG/20 ML VIAL IV ONE (13:18)
[2024-05-20 15:03] VITALS: BP 114/70
[2024-05-20 17:58] VITALS: BP 114/70
[2024-05-20 18:47] VITALS: BP 137/71
[2024-05-20] MEDS ORDERED: INSULIN GLARGINE 100 UNITS/ML SC SCH (21:00)
[2024-05-20] MEDS ORDERED: HYDROmorphone HCL 2 MG/AMP IV PRN (22:40)
[2024-05-21] VITALS (10 sets, daily range): BP systolic 110–143; BP diastolic 67–80
[2024-05-21 05:43] LABS: BASO% 0.5 % (0-3); EOS% 5.6 % (0-8); HEMATOCRIT 37.8 % (39.0-50.0); HEMOGLOBIN 12.1 g/dl (14.0-18.0); IMMATURE GRANULOCYTES 0.1 % (0.0-5.0); LYMPH% 11.1 % (15-41); MEAN CELL VOLUME 92.6 fL CALC (80.0-100.0); MEAN CORPUSCULAR HGB 29.7 pG CALC (26.0-32.0); MONO% 9.2 % (2-13); NEUT# 5.34 thou/uL (1.82-7.42); NEUT% 73.5 % (42-76); RED BLOOD COUNT 4.08 mill/uL (4.70-6.10); RED CELL DISTRI WIDTH 14.6 % (11.5-15.5)
[2024-05-21 05:55] LABS: ALBUMIN 3.2 g/dL (3.2-5.0); BILIRUBIN, TOTAL 0.6 mg/dL (0.2-1.3); POTASSIUM 4.1 mmol/l (3.5-5.1); TOTAL PROTEIN 6.1 g/dL (6.3-8.2)
[2024-05-21 09:09] LABS: URINE BILIRUBIN - DIPSTICK Negative (NEGATIVE); URINE BLOOD DIPSTICK Negative (NEGATIVE); URINE CLARITY Clear; URINE GLUCOSE - DIPSTICK >=1000 mg/dL (NEGATIVE); URINE KETONE Negative (NEGATIVE); URINE LEUK ESTERASE Negative (Negative); URINE NITRITE - DIPSTICK Negative (Negative); URINE PH 5.5 (4.5-8.0); URINE PROTEIN - DIPSTICK Negative (NEG-TRACE); URINE SPECIFIC GRAVITY 1.025; URINE UROBILINOGEN - DIPSTICK 0.2 E.U./dL (0.2)
[2024-05-21 09:10] LABS: URINE COLOR Yellow
[2024-05-21] MEDS ORDERED: VANCOMYCIN HCL 1,250 MG in SODIUM CHLORIDE 0.9% 225 ML IV SCH (12:00)
[2024-05-22 04:56] VITALS: BP 112/36
[2024-05-22 05:44] LABS: BASO% 0.5 % (0-3); EOS% 4.5 % (0-8); HEMATOCRIT 35.1 % (39.0-50.0); HEMOGLOBIN 11.7 g/dl (14.0-18.0); IMMATURE GRANULOCYTES 0.7 % (0.0-5.0); LYMPH% 13.9 % (15-41); MEAN CELL VOLUME 89.1 fL CALC (80.0-100.0); MEAN CORPUSCULAR HGB 29.7 pG CALC (26.0-32.0); MEAN CORPUSCULAR HGB CONC 33.3 g/dL CAL (32.0-36.0); MONO% 10.4 % (2-13); NEUT# 5.75 thou/uL (1.82-7.42); RED BLOOD COUNT 3.94 mill/uL (4.70-6.10); RED CELL DISTRI WIDTH 14.5 % (11.5-15.5)
[2024-05-22 05:51] LABS: ALBUMIN 3.2 g/dL (3.2-5.0); CREATININE 0.8 mg/dL (0.7-1.3); MAGNESIUM 1.9 mg/dL (1.6-2.3)
[2024-05-22 06:08] VITALS: BP 123/64
[2024-05-22 09:43] VITALS: BP 123/68
[2024-05-22 14:21] VITALS: BP 112/65
[2024-05-22 18:52] VITALS: BP 120/73
[2024-05-23] VITALS (7 sets, daily range): BP systolic 115–130; BP diastolic 62–75
[2024-05-23 06:02] LABS: BASO% 0.6 % (0-3); HEMATOCRIT 35.7 % (39.0-50.0); HEMOGLOBIN 11.9 g/dl (14.0-18.0); IMMATURE GRANULOCYTES 0.2 % (0.0-5.0); LYMPH% 15.7 % (15-41); MEAN CELL VOLUME 88.1 fL CALC (80.0-100.0); MEAN CORPUSCULAR HGB 29.4 pG CALC (26.0-32.0); MEAN CORPUSCULAR HGB CONC 33.3 g/dL CAL (32.0-36.0); MONO% 9.4 % (2-13); NEUT# 4.33 thou/uL (1.82-7.42); NEUT% 69.1 % (42-76); RED BLOOD COUNT 4.05 mill/uL (4.70-6.10); RED CELL DISTRI WIDTH 14.5 % (11.5-15.5)
[2024-05-23 06:10] LABS: ALBUMIN 3.3 g/dL (3.2-5.0); CREATININE 0.8 mg/dL (0.7-1.3); POTASSIUM 4.1 mmol/l (3.5-5.1); TOTAL PROTEIN 6.2 g/dL (6.3-8.2)
[2024-05-23 06:21] LABS: BILIRUBIN, TOTAL 0.5 mg/dL (0.2-1.3)
[2024-05-23] MEDS ORDERED: APIXABAN BASE 5 MG TAB PO SCH (11:00)
[2024-05-23] MEDS ORDERED: VANCOMYCIN HCL 1 GM in SODIUM CHLORIDE 0.9% 250 ML IV SCH (12:30)
[2024-05-23] MEDS ORDERED: ATORVASTATIN CALCIUM 40 MG/TAB PO SCH (21:00)
[2024-05-24 03:46] VITALS: BP 128/74
[2024-05-24 06:58] VITALS: BP 130/54
[2024-05-24 06:59] LABS: ALBUMIN 3.4 g/dL (3.2-5.0); CREATININE 0.7 mg/dL (0.7-1.3); MAGNESIUM 1.8 mg/dL (1.6-2.3); POTASSIUM 4.2 mmol/l (3.5-5.1); TOTAL PROTEIN 6.3 g/dL (6.3-8.2)
[2024-05-24 07:03] LABS: BILIRUBIN, TOTAL 0.8 mg/dL (0.2-1.3)
[2024-05-24 08:45] LABS: BASO% 0.8 % (0-3); EOS% 5.5 % (0-8); HEMATOCRIT 37.5 % (39.0-50.0); IMMATURE GRANULOCYTES 0.3 % (0.0-5.0); LYMPH% 15.3 % (15-41); MEAN CELL VOLUME 89.3 fL CALC (80.0-100.0); MEAN CORPUSCULAR HGB 28.6 pG CALC (26.0-32.0); MONO% 8.7 % (2-13); NEUT# 5.18 thou/uL (1.82-7.42); NEUT% 69.4 % (42-76); RED BLOOD COUNT 4.2 mill/uL (4.70-6.10); RED CELL DISTRI WIDTH 14.6 % (11.5-15.5)
[2024-05-24] MEDS ORDERED: CLOPIDOGREL BISULFATE 75 MG/TAB TAB PO SCH (09:00)
[2024-05-24 10:33] VITALS: BP 114/55
[2024-05-24] MEDS ORDERED: LACTULOSE 20 GM/30 ML UDC PO SCH (11:30)
[2024-05-24] MEDS ORDERED: cefTRIAXone SODIUM 2 GM in SODIUM CHLORIDE 0.9% 100 ML IV SCH (12:00)
== END 2024-05-24 13:49 | disposition home health service (06) | DRG 617 ==
LOC: MS2 15:07
PROVIDERS: Internal Medicine; Nurse Practitioner Family; ADMIT Internal Medicine; ATTEND Internal Medicine
PROC: 0Y6R0Z0 Detachment at Right 2nd Toe, Complete, Open Approach (ICD-10-PCS; principal; 2024-05-20)
PROC: 02HV33Z Insertion of Infusion Device into Superior Vena Cava, Percutaneous Approach (ICD-10-PCS; 2024-05-20)
PROC: B518ZZA Fluoroscopy of Superior Vena Cava, Guidance (ICD-10-PCS; 2024-05-21)
DX: E11.69 Type 2 diabetes mellitus with other specified complication (principal); L03.115 Cellulitis of right lower limb; L97.518 Non-pressure chronic ulcer of other part of right foot with other specified severity; M86.8X7 Other osteomyelitis, ankle and foot; B96.89 Other specified bacterial agents as the cause of diseases classified elsewhere; E11.621 Type 2 diabetes mellitus with foot ulcer; E11.51 Type 2 diabetes mellitus with diabetic peripheral angiopathy without gangrene; E11.42 Type 2 diabetes mellitus with diabetic polyneuropathy; I10 Essential (primary) hypertension; I25.10 Atherosclerotic heart disease of native coronary artery without angina pectoris; I48.91 Unspecified atrial fibrillation; Z95.1 Presence of aortocoronary bypass graft; Z89.411 Acquired absence of right great toe; Z79.01 Long term (current) use of anticoagulants; Z95.5 Presence of coronary angioplasty implant and graft; Z79.4 Long term (current) use of insulin; Z95.820 Peripheral vascular angioplasty status with implants and grafts; Z79.02 Long term (current) use of antithrombotics/antiplatelets
CPT/HCPCS: J0131; J0692; J0696; J1171; J1815; J3370